=== PATIENT | female | born 1965 | race American Indian/Alaskan Native ===

== ENCOUNTER 2017-02-24 23:51 | Emergency (ER) | payer BC, MEDICARE ==
[2017-02-25 01:06] LABS: Basophils % (Auto) 0.6 % (0.0-1.8); Eosinophils % (Auto) 6.7 % (0.0-4.3); Hematocrit 38.7 % (30.3-42.9); Hemoglobin 12.1 gm/dl (10.1-14.3); Mean Corpuscular HGB Conc 31 % (30-34); Mean Corpuscular Hemoglobin 25 pg (28-32); Mean Corpuscular Volume 80 fl (79-97); Platelet Count 225 K/mm3 (140-440); Red Blood Count 4.83 M/mm3 (3.65-5.03); Red Cell Distribution Width 15.3 % (13.2-15.2); White Blood Count 7.8 K/mm3 (4.5-11.0)
[2017-02-25 01:27] LABS: Anion Gap 18 mmol/L; BUN/Creatinine Ratio 20; Blood Urea Nitrogen 20 mg/dL (7-17); Calcium 9.5 mg/dL (8.4-10.2); Carbon Dioxide 28 mmol/L (22-30); Chloride 99.1 mmol/L (98-107); Glucose 105 mg/dL (65-100); Potassium 3.9 mmol/L (3.6-5.0); Sodium 141 mmol/L (137-145)
--- NOTE | 2017-02-25 16:30 | Emergency Department Report ---
ED Chest Pain HPI - General Chief Complaint: Chest Pain Stated Complaint: CP W L. ARM NUMBNESS Time Seen by Provider: 02/25/17 16:10 Source: patient Mode of arrival: Ambulatory Limitations: No Limitations - History of Present Illness Initial Comments: 51 yo female who comes in due to chest pain. She stated that she was sitting at home on yesterday around 3pm and started having chest pain. She describes the chest pain as midsternal, 4/10, pressure-like, with radiation to her left arm. At that time, she decided to keep doing what she was doing. Around 12:30 am, she decided to come to the ED. Chest pain resolved currently. She admits to having a cardiac stress test several years ago which was normal. Hx of asthma, copd, and htn. -: days(s) (one ) Onset: during rest Pain Location: substernal Pain Radiation: LUE Severity: mild Severity scale (0 -10): 4 Quality: aching, pressure Consistency: now resolved Improves With: nothing Worsens With: nothing Context: other (none ) Other Symptoms: other (none) Treatments Prior to Arrival: other (breathing treatment ) Aspirin use within the Past 7 Days: (0) No - Related Data On Oral Contraceptives: No Home Medications Medication Instructions Recorded Confirmed Last Taken Advair Diskus 500-50 mcg 1 puff IH BID 02/25/17 02/25/17 Unknown Benicar HCT 40-25 mg 1 tab PO DAILY 02/25/17 02/25/17 Unknown Fish Oil 1 tab PO DAILY 02/25/17 02/25/17 Unknown Nexium 40 mg PO DAILY 02/25/17 02/25/17 Unknown Potassium Chloride 20 meq PO DAILY 02/25/17 02/25/17 Unknown Allergies Allergy/AdvReac Type Severity Reaction Status Date / Time aspirin Allergy Shortness Verified 05/26/16 00:44 of Breath shellfish derived Allergy Shortness Verified 05/26/16 00:44 of Breath Heart Score - HEART Score History: Slightly suspicious EKG: Normal Age: 45-65 Risk factors: 1-2 risk factors Troponin: < normal limit HEART Score: 2 ED Review of Systems ROS: Stated complaint: CP W L. ARM NUMBNESS Other details as noted in HPI Constitutional: denies: chills, fever Eyes: denies: eye pain, eye discharge, vision change ENT: denies: ear pain, throat pain Respiratory: denies: cough, shortness of breath, wheezing Cardiovascular: as per HPI, chest pain Endocrine: no symptoms reported Gastrointestinal: denies: abdominal pain, nausea, diarrhea Genitourinary: denies: urgency, dysuria, discharge Musculoskeletal: denies: back pain, joint swelling, arthralgia Skin: denies: rash, lesions Neurological: denies: headache, weakness, paresthesias Psychiatric: denies: anxiety, depression Hematological/Lymphatic: denies: easy bleeding, easy bruising ED Past Medical Hx - Past Medical History Previous Medical History?: Yes Hx Hypertension: Yes Hx Asthma: Yes - Surgical History Additional Surgical History: sinus. cfs leak craniotomy to repair. Hernia - Social History Smoking Status: Never Smoker - Medications Home Medications: Home Medications Medication Instructions Recorded Confirmed Last Taken Type Advair Diskus 500-50 mcg 1 puff IH BID 02/25/17 02/25/17 Unknown History Benicar HCT 40-25 mg 1 tab PO DAILY 02/25/17 02/25/17 Unknown History Fish Oil 1 tab PO DAILY 02/25/17 02/25/17 Unknown History Nexium 40 mg PO DAILY 02/25/17 02/25/17 Unknown History Potassium Chloride 20 meq PO DAILY 02/25/17 02/25/17 Unknown History ED Physical Exam - General Limitations: No Limitations General appearance: alert, in no apparent distress - Head Head exam: Present: atraumatic, normocephalic - Eye Eye exam: Present: normal appearance - ENT ENT exam: Present: mucous membranes moist - Neck Neck exam: Present: normal inspection - Respiratory Respiratory exam: Present: wheezes (diffusely-minimal ) - Cardiovascular Cardiovascular Exam: Present: regular rate, normal rhythm. Absent: systolic murmur, diastolic murmur, rubs, gallop - GI/Abdominal GI/Abdominal exam: Present: soft, normal bowel sounds - Extremities Exam Extremities exam: Present: normal inspection - Back Exam Back exam: Present: normal inspection - Neurological Exam Neurological exam: Present: alert, oriented X3 - Psychiatric Psychiatric exam: Present: normal affect, normal mood - Skin Skin exam: Present: warm, dry, intact, normal color. Absent: rash ED Course Vital Signs 02/25/17 02/25/17 02/25/17 00:12 09:59 15:45 Temperature 98.4 F 98.3 F Pulse Rate 69 62 62 Pulse Rate [ Anterior Bilateral Throughout] Respiratory 18 22 12 Rate Respiratory Rate [Anterior Bilateral Throughout] Blood Pressure 151/83 125/65 101/60 O2 Sat by Pulse 100 97 Oximetry 02/25/17 02/25/17 02/25/17 16:00 17:01 17:12 Temperature Pulse Rate 57 L Pulse Rate [ 63 65 Anterior Bilateral Throughout] Respiratory 14 Rate Respiratory 16 16 Rate [Anterior Bilateral Throughout] Blood Pressure 108/65 O2 Sat by Pulse Oximetry - Reevaluation(s) Reevaluation #1: 02/25/17 16:41 First two sets of enzymes/ekg unremarkable. Home if third set negative. Suspect asthma/uri. Reevaluation #2: 02/25/17 17:17 Cardiac evaluation unremarkable. Suspect asthma/upper respiratory infection. Home after breathing and steroid treatment. CORETTA score - Coretta Score Age > 65: (0) No Aspirin use within the Past 7 Days: (0) No 3 or more CAD Risk Factors: (0) No 2 or more Angina events in past 24 hrs: (0) No Known CAD with more than 50% Stenosis: (0) No Elevated Cardiac Markers: (0) No ST Deviation Greater than 0.5mm: (0) No CORETTA Score: 0 ED Medical Decision Making - Lab Data Result diagrams: 02/25/17 00:26 02/25/17 00:26 - EKG Data EKG shows normal: sinus rhythm Rate: normal - EKG Data When compared to previous EKG there are: no significant change Interpretation: normal EKG Critical care attestation.: If time is entered above; I have spent that time in minutes in the direct care of this critically ill patient, excluding procedure time. ED Disposition Clinical Impression: Asthma, Upper respiratory infection, viral Disposition: DC-01 TO HOME OR SELFCARE Is pt being admited?: No Does the pt Need Aspirin: No Condition: Stable Instructions: Asthma (ED), Upper Respiratory Infection (ED) Additional Instructions: Please establish with a provider on discharge. Return to the ED for worsening chest pain, shortness of breath, fever, or chills. Referrals: PRIMARY CARE, [Primary Care Provider] - 3-5 Days Time of Disposition: 17:56
[2017-02-25] MEDS ORDERED: DUONEB *Not for PRN Use IH ONE (16:42)
[2017-02-25 18:24] VITALS: BP 112/76
--- NOTE | 2017-02-25 20:31 | XRay Report ---
FINAL REPORT EXAM: XR CHEST 1V AP HISTORY: chest pain TECHNIQUE: AP portable view of the chest PRIORS: None. FINDINGS: Lines, tubes, and devices: N/A Lungs and pleura: Trachea is normal in position. Lungs are clear of infiltrate, pleural effusion, vascular congestion, or pneumothorax. Cardiomediastinal silhouette: Cardiac and mediastinal silhouettes are unremarkable. Other: Bony structures are intact. IMPRESSION: No acute cardiopulmonary process seen.
== END 2017-02-25 18:23 | disposition home or self-care (01) ==
LOC: ED 23:51
DX: J45.909 Unspecified asthma, uncomplicated (principal); J06.9 Acute upper respiratory infection, unspecified; I10 Essential (primary) hypertension; Z88.6 Allergy status to analgesic agent; Z91.013 Allergy to seafood
CPT/HCPCS: 36415; 71010; 80048; 84484; 85025; 93005; 93010; 94640; 96372; 99284; J2930

== ENCOUNTER 2017-04-09 05:56 | Emergency (ER) | payer BC, MEDICARE ==
[2017-04-09] MEDS ORDERED: PROVENTIL IH ONE (06:06)
[2017-04-09] MEDS ORDERED: ATROVENT IH ONE (06:06)
[2017-04-09] MEDS ORDERED: DELTASONE PO ONE (06:07)
[2017-04-09 07:27] LABS: Hematocrit 39.3 % (30.3-42.9); Hemoglobin 12.7 gm/dl (10.1-14.3); Mean Corpuscular HGB Conc 32 % (30-34); Mean Corpuscular Volume 80 fl (79-97); Platelet Count 207 K/mm3 (140-440); Red Blood Count 4.91 M/mm3 (3.65-5.03); Red Cell Distribution Width 15.5 % (13.2-15.2)
[2017-04-09 07:33] LABS: Mean Corpuscular Hemoglobin 26 pg (28-32)
[2017-04-09 07:41] LABS: BUN/Creatinine Ratio 17; Blood Urea Nitrogen 15 mg/dL (7-17); Calcium 9.2 mg/dL (8.4-10.2); Hemolysis Index 2
[2017-04-09 08:42] LABS: Band Neutrophils # (Manual) 0.1 K/mm3; Basophils % (Manual) 0 % (0.0-1.8); Platelet Estimate Consistent w Auto; RBC Morphology Normal; Total Cells Counted 100
--- NOTE | 2017-04-09 11:47 | XRay Report ---
CHEST 2 VIEWS INDICATION: Difficulty breathing. COMPARISON: 02/25/2017. FINDINGS: PA and lateral chest radiographs demonstrate normal cardiomediastinal silhouette. Clear lungs. Slight mid thoracic superior endplate compressions at a couple of levels and mild degenerative spurring, similar to May 2016. CONCLUSION: No acute disease in the chest. Thank you for the opportunity to participate in this patient's care.
[2017-04-09] MEDS ORDERED: MAGNESIUM SULFATE 2GM/50ML 2 GM/50 ML BAG IV ONE (12:18)
[2017-04-09] MEDS ORDERED: DUONEB *Not for PRN Use IH ONE (12:18)
[2017-04-09] MEDS ORDERED: DECADRON IV ONE (12:18)
--- NOTE | 2017-04-09 13:21 | Emergency Department Report ---
ED Asthma HPI - General Chief Complaint: Dyspnea/Respdistress Stated Complaint: TALIB Time Seen by Provider: 04/09/17 12:12 Source: patient Mode of arrival: Ambulatory Limitations: No Limitations - History of Present Illness Initial Comments: 51-year-old female past medical history asthma presents with complaint of accident exacerbation which started last night. Patient states that she began wheezing and used her nebulizer at home but ran out of medicine. He states it got somewhat better but in the morning wheezing persisted which is why she came here. Patient denies chest pain bodyaches fevers chills nausea vomiting dysuria hematuria or abdominal pain palpitations or pleuritic chest pain. Patient is fully lucid speaking in full sentences no audible wheezing or stridor. No visible dyspnea. States wheezing has somewhat improved but still feels slightly short of breath. Denies any history of intubations. Patient denies being a smoker. Denies body aches fevers chills nausea or any flulike/ viral syndrome/symptoms. Denies sick contacts. MD Complaint: "asthma attack", wheezing -: Last night Asthma History: childhood onset Severity: mild Context: none known Associated Symptoms: none Treatments Prior to Arrival: inhaled bronchodilator - Related Data Current Asthma Therapy: inhaled bronchodilator Home Medications Medication Instructions Recorded Confirmed Last Taken Advair Diskus 500-50 mcg 1 puff IH BID 02/25/17 02/25/17 Unknown Benicar HCT 40-25 mg 1 tab PO DAILY 02/25/17 02/25/17 Unknown Fish Oil 1 tab PO DAILY 02/25/17 02/25/17 Unknown Nexium 40 mg PO DAILY 02/25/17 02/25/17 Unknown Potassium Chloride 20 meq PO DAILY 02/25/17 02/25/17 Unknown Previous Rx's Medication Instructions Recorded Last Taken Type Albuterol Sulfate [Albuterol 0.63% 0.63 mg IH Q4H PRN #1 box 04/09/17 Unknown Rx NEBS] Albuterol Sulfate [Ventolin Hfa] 1 puff IH Q4H PRN #1 hfa.aer.ad 04/09/17 Unknown Rx Prednisone [predniSONE 10 mg 10 mg PO .TAPER #1 tab.ds.pk 04/09/17 Unknown Rx (6-Day Pack, 21 Tabs)] Allergies Allergy/AdvReac Type Severity Reaction Status Date / Time aspirin Allergy Shortness Verified 05/26/16 00:44 of Breath shellfish derived Allergy Shortness Verified 05/26/16 00:44 of Breath ED Review of Systems ROS: Stated complaint: TALIB Other details as noted in HPI Constitutional: denies: chills, fever Eyes: denies: eye pain, eye discharge, vision change ENT: denies: ear pain, throat pain Respiratory: shortness of breath, wheezing. denies: cough Cardiovascular: denies: chest pain, palpitations Endocrine: no symptoms reported Gastrointestinal: denies: abdominal pain, nausea, diarrhea Genitourinary: denies: urgency, dysuria, discharge Musculoskeletal: denies: back pain, joint swelling, arthralgia Skin: denies: rash, lesions Neurological: denies: headache, weakness, paresthesias Psychiatric: denies: anxiety, depression Hematological/Lymphatic: denies: easy bleeding, easy bruising ED Past Medical Hx - Past Medical History Hx Hypertension: Yes Hx Asthma: Yes - Surgical History Additional Surgical History: sinus. cfs leak craniotomy to repair. Hernia - Social History Smoking Status: Never Smoker Substance Use Type: None, Alcohol - Medications Home Medications: Home Medications Medication Instructions Recorded Confirmed Last Taken Type Advair Diskus 500-50 mcg 1 puff IH BID 02/25/17 02/25/17 Unknown History Benicar HCT 40-25 mg 1 tab PO DAILY 02/25/17 02/25/17 Unknown History Fish Oil 1 tab PO DAILY 02/25/17 02/25/17 Unknown History Nexium 40 mg PO DAILY 02/25/17 02/25/17 Unknown History Potassium Chloride 20 meq PO DAILY 02/25/17 02/25/17 Unknown History Albuterol Sulfate [Albuterol 0.63% 0.63 mg IH Q4H PRN #1 box 04/09/17 Unknown Rx NEBS] Albuterol Sulfate [Ventolin Hfa] 1 puff IH Q4H PRN #1 hfa.aer.ad 04/09/17 Unknown Rx Prednisone [predniSONE 10 mg 10 mg PO .TAPER #1 tab.ds.pk 04/09/17 Unknown Rx (6-Day Pack, 21 Tabs)] ED Physical Exam - General Limitations: No Limitations General appearance: alert, in no apparent distress - Head Head exam: Present: atraumatic, normocephalic - Eye Eye exam: Present: normal appearance, PERRL, EOMI - ENT ENT exam: Present: mucous membranes moist - Neck Neck exam: Present: normal inspection - Respiratory Respiratory exam: Present: wheezes (wheezing bilateral lower lung angel). Absent: respiratory distress - Cardiovascular Cardiovascular Exam: Present: regular rate, normal rhythm. Absent: systolic murmur, diastolic murmur, rubs, gallop - GI/Abdominal GI/Abdominal exam: Present: soft, normal bowel sounds - Extremities Exam Extremities exam: Present: normal inspection - Back Exam Back exam: Present: normal inspection - Neurological Exam Neurological exam: Present: alert, oriented X3 - Psychiatric Psychiatric exam: Present: normal affect, normal mood - Skin Skin exam: Present: warm, dry, intact, normal color. Absent: rash ED Course Vital Signs 04/09/17 04/09/17 06:00 06:21 Temperature 98.9 F Pulse Rate 81 Pulse Rate [ 76 Anterior Bilateral Throughout] Respiratory 20 Rate Respiratory 20 Rate [Anterior Bilateral Throughout] Blood Pressure 124/71 O2 Sat by Pulse 96 Oximetry ED Medical Decision Making - Lab Data Result diagrams: 04/09/17 06:49 04/09/17 06:49 - Medical Decision Making A/P: Asthma exacerbation, reactive airway disease 1-refill on albuterol inhaler 2- prednisone/taper 3- normal vital signs, patient does not have any audible wheezing or stridor or retractions before discharge. 4- vital signs stable for discharge 5- patient to follow up with primary care doctor Critical care attestation.: If time is entered above; I have spent that time in minutes in the direct care of this critically ill patient, excluding procedure time. ED Disposition Clinical Impression: Asthma exacerbation Qualifiers: Asthma severity: mild Asthma persistence: unspecified Qualified Code(s): J45.901 - Unspecified asthma with (acute) exacerbation Disposition: DC-01 TO HOME OR SELFCARE Is pt being admited?: No Does the pt Need Aspirin: No Condition: Stable Instructions: Asthma (ED) Prescriptions: Albuterol Sulfate [Albuterol 0.63% NEBS] 0.63 mg IH Q4H PRN #1 box PRN Reason: Wheezing Albuterol Sulfate [Ventolin Hfa] 1 puff IH Q4H PRN #1 hfa.aer.ad PRN Reason: Wheezing Prednisone [predniSONE 10 mg (6-Day Pack, 21 Tabs)] 10 mg PO .TAPER #1 tab.ds.pk Referrals: [facility] [Outside] - 3-5 Days [facility] [Outside] - 3-5 Days Forms: Work/School Release Form(ED) Time of Disposition: 13:23
[2017-04-09 13:30] VITALS: BP 130/75
== END 2017-04-09 13:29 | disposition home or self-care (01) ==
LOC: ED 05:56
DX: J45.901 Unspecified asthma with (acute) exacerbation (principal); I10 Essential (primary) hypertension; Z91.013 Allergy to seafood; Z88.8 Allergy status to other drugs, medicaments and biological substances
CPT/HCPCS: 36415; 71046; 80048; 85007; 85025; 94640; 96365; 96375; 99284; J1100; J3475; J7512

== ENCOUNTER 2017-05-04 20:03 | Emergency (ER) | payer BC, MEDICARE ==
[2017-05-04 20:44] VITALS: BP 119/77
[2017-05-04] MEDS ORDERED: ASPIRIN PO ONE (20:45)
[2017-05-04 21:24] LABS: Basophils # (Auto) 0.1 K/mm3 (0.0-0.1); Eosinophils # (Auto) 0.7 K/mm3 (0.0-0.4); Eosinophils % (Auto) 8.9 % (0.0-4.3); Hematocrit 38.7 % (30.3-42.9); Lymphocytes # (Auto) 3.5 K/mm3 (1.2-5.4); Lymphocytes % (Auto) 43.4 % (13.4-35.0); Mean Corpuscular HGB Conc 31 % (30-34); Mean Corpuscular Volume 81 fl (79-97); Monocytes # (Auto) 0.6 K/mm3 (0.0-0.8); Monocytes % (Auto) 7.7 % (0.0-7.3); Platelet Count 229 K/mm3 (140-440); Red Blood Count 4.76 M/mm3 (3.65-5.03); Red Cell Distribution Width 16.1 % (13.2-15.2)
[2017-05-04 21:29] LABS: Mean Corpuscular Hemoglobin 25 pg (28-32)
[2017-05-04 21:42] LABS: BUN/Creatinine Ratio 16; Blood Urea Nitrogen 16 mg/dL (7-17); Calcium 9.3 mg/dL (8.4-10.2); Hemolysis Index 10
== END 2017-05-05 00:21 | disposition left against medical advice (07) ==
LOC: ED 20:03
DX: R07.9 Chest pain, unspecified (principal); Z53.21 Procedure and treatment not carried out due to patient leaving prior to being seen by health care provider
CPT/HCPCS: 36415; 80048; 84484; 84703; 85025; 93005; 93010

== ENCOUNTER 2017-05-18 22:52 | Emergency (ER) | payer BC, MEDICARE ==
[2017-05-19] MEDS ORDERED: PROVENTIL IH ONE ×2 (00:32→00:35)
[2017-05-19 00:34] VITALS: BP 118/76
== END 2017-05-19 04:46 | disposition left against medical advice (07) ==
LOC: ED 22:52
DX: R06.00 Dyspnea, unspecified (principal); Z53.21 Procedure and treatment not carried out due to patient leaving prior to being seen by health care provider

== ENCOUNTER 2017-12-21 21:33 | Emergency (ER) | payer BC, MEDICARE ==
[2017-12-21] MEDS ORDERED: ASPIRIN PO ONE (22:23)
[2017-12-21 22:24] VITALS: BP 120/73
== END 2017-12-21 22:48 | disposition left against medical advice (07) ==
LOC: ED 21:33
DX: R07.89 Other chest pain (principal); Z53.21 Procedure and treatment not carried out due to patient leaving prior to being seen by health care provider
CPT/HCPCS: 93005; 93010

== ENCOUNTER 2018-06-20 08:03 | Outpatient (CLI) | payer BC, OTHER | END 2018-06-20 08:04 | disposition home or self-care (01) | LOC: LABHHL 08:03 | PROVIDERS: ATTEND Surgery | DX: N63.24 Unspecified lump in the left breast, lower inner quadrant (principal); I10 Essential (primary) hypertension; J45.909 Unspecified asthma, uncomplicated | CPT/HCPCS: 88305 ==

== ENCOUNTER 2018-07-18 11:06 | Day surgery (SDC) | payer BC, OTHER ==
[~2018-07-18 11:06] MED LIST: ANCEF/STERILE WATER 2 GM/20 ML 2 GM/20 ML SYRINGE IV NR
[2018-07-18] MEDS ORDERED: ZOFRAN IV PRN (12:09)
[2018-07-18] MEDS ORDERED: DILAUDID IV PRN (12:09)
[2018-07-18] MEDS ORDERED: SUBLIMAZE IV PRN (12:09)
[2018-07-18] MEDS ORDERED: NARCAN 0.4 MG/1 ML IV PRN (12:09)
--- NOTE | 2018-07-18 12:09 | Anesthesia Consultation ---
Anesthesia Consult and Med Hx Date of service: 07/18/18 - Airway Anesthetic Teeth Evaluation: Poor ROM Head & Neck: Adequate Mental/Hyoid Distance: Adequate Mallampati Class: Class II Intubation Access Assessment: Good - Pulmonary Exam CTA: Yes - Cardiac Exam Cardiac Exam: RRR - Pre-Operative Health Status ASA Pre-Surgery Classification: ASA2 Proposed Anesthetic Plan: MAC - Pulmonary Hx Asthma: Yes (INHALER AND ORAL MED) - Cardiovascular System Hx Hypertension: Yes - Central Nervous System Hx Psychiatric Problems: No - Other Systems Hx Alcohol Use: No Hx Substance Use: No Hx Cancer: No
--- NOTE | 2018-07-18 12:09 | Anesthesia Day of Surgery ---
Anesthesia Day of Surgery - Day of Surgery Patient Examined: Yes Patient H&P Reviewed: Yes Patient is NPO: Yes Beta Blockers: No Cardiac Clearance: No Pulmonary Clearance: No
--- NOTE | 2018-07-18 12:20 | Operative Report ---
Operative Report Operative Report: Operative Report: Date of Service: July 18, 2018 Preoperative diagnosis: Left breast sebaceous cyst of the lower inner quadrant Postoperative diagnosis: Same Procedure: Left breast sebaceous cyst excisional biopsy of the lower inner quadrant Anesthesia: Local MAC Surgeon: Tiarra Hdz M.D. Findings: Left breast sebaceous cyst at the 8 o'clock position with excision performed Complications: None Drains: None Estimated blood loss: Minimal Disposition: PACU in good condition Indication for operative procedure: This is a 52-year-old lady with left breast sebaceous cyst. Recent biopsy findings of sebaceous cyst and recommendations for excision given increasing size and risk for infection. Patient wished to proceed with the above procedure. The patient was procedure in detail: The patient was taken to the operating room and was laid supine. Local MAC anesthesia was administered. The left breast sebacous cyst was palpable at the 8 o'clock position close to the sternum. The left breast was prepped and draped in the normal sterile operative fashion. Timeout was performed. The area of incision was anesthesized with 1% lidocaine mixed with quarter percent marcaine. A breast incision was made with a 15 blade knife at the 8:00 position. Upon incision the most medial aspect of the cyst ruptured. The cyst was then dissected free from the underlying skin and the posterior aspect removed from the posterior breast tissues with the aid of the Bovie cautery. The cyst capsule was removed in its entirety. The specimen was sent to pathology. Hemostasis was then obtained using the Bovie cautery. Breast cavity was anesthesized with additional 1% lidocaine and quarter percent marcaine. The breast cavity was irrigated and suctioned. The deep breast tissues were approximated and closed using interrupted 3-0 Vicryl and skin brought together and closed using a running 4-0 Monocryl followed by dermabond. She tolerated surgery very well and was awakened from anesthesia without any complication and transported to PACU in good condition.
[2018-07-18] MEDS ORDERED: MARCAINE 0.25% INFILTRATI ONE ×2 (12:33→12:41)
[2018-07-18] MEDS ORDERED: NACL 0.9% IR ONE (12:33)
[2018-07-18] MEDS ORDERED: NEOSPORIN GU IR ONE ×2 (12:33→13:14)
[2018-07-18] MEDS ORDERED: XYLOCAINE 1% 20 mL INFILTRATI ONE (12:33)
[2018-07-18] MEDS ORDERED: XYLOCAINE 1% 20 mL ONE (12:41)
[2018-07-18] MEDS ORDERED: DILAUDID ONE (12:45)
[2018-07-18] MEDS ORDERED: DIPRIVAN 10 MG/ML IV ONE ×2 (12:45→13:28)
[2018-07-18] MEDS ORDERED: VERSED ONE (12:45)
[2018-07-18] MEDS ORDERED: LACTATED RINGERS 1,000 ML IV SCH (13:00)
[2018-07-18] MEDS ORDERED: NACL 0.9% 1000 ML 1,000 ML ONE (14:08)
[2018-07-18] MEDS ORDERED: XYLOCAINE MPF 2% ONE (14:08)
--- NOTE | 2018-07-18 14:30 | Short Stay Summary ---
Short Stay Documentation Date of service: 07/18/18 - History H&P: obtained from office - Allergies and Medications Current Medications: Allergies aspirin Allergy (Verified 07/15/18 10:37) Shortness of Breath shellfish derived Allergy (Verified 07/15/18 10:37) Anaphylaxis Home Medications Medication Instructions Recorded Confirmed Last Taken Type ALBUTEROL Inhaler (OR & NICU) 2 puff IH QID PRN 07/15/18 07/15/18 Unknown Hist ory [Proair] Esomeprazole Magnesium [NexIUM] 40 mg PO QDAY 07/15/18 07/15/18 Unknown History Fluticasone [Flonase] 1 spray NS QDAY 07/15/18 07/15/18 Unknown History Fluticasone/Salmeterol [Advair 1 each IH BID 07/15/18 07/15/18 Unknown History 500-50 Diskus] Ipratropium/Albuterol Sulfate 1 ampul IH Q6HR PRN 07/15/18 07/15/18 Unknown History [DUONEB *Not for PRN Use*] Montelukast [Singulair] 10 mg PO QPM 07/15/18 07/15/18 Unknown History HYDROcodone/APAP 5-325 [[place] 1 each PO Q6HR PRN #25 tablet 07/18/18 Unknown Rx 5/325] Sulfamethoxazole/Trimethoprim 1 each PO BID #14 tablet 07/18/18 Unknown Rx [Bactrim DS TAB] Active Medications Fentanyl (Sublimaze) 50 mcg IV Q5MIN PRN PRN Reason: Pain , Severe (7-10) Hydromorphone HCl (Dilaudid) 0.5 mg IV Q10MIN PRN PRN Reason: Pain , Severe (7-10) Cefazolin Sodium (Ancef/Sterile Water 2 Gm/20 Ml) 2 gm in 20 mls @ 80 mls/hr IV PREOP NR; Protocol Stop: 07/18/18 23:59 Lactated Ringer's (Lactated Ringers) 1,000 mls @ 42 mls/hr IV DIRECT FLAQUITA Naloxone HCl (Narcan 0.4 Mg/1 Ml) 0.1 mg IV Q2MIN PRN PRN Reason: Res Rate </= 8 or 02 SAT < 92% Ondansetron HCl (Zofran) 4 mg IV ONCE PRN PRN Reason: Nausea And Vomiting - Brief post op/procedure progress note Date of procedure: 07/18/18 Pre-op diagnosis: Left breast sebaceous cyst Post-op diagnosis: same Procedure: Left breast sebaceous cyst excisional biopsy Anesthesia: GETA Findings: Left ruptured sebaceous cyst excisional biopsy Surgeon: OMAR GUPTA Estimated blood loss: minimal Pathology: list (left sebaceous cyst) Specimen disposition: to lab Condition: stable - Disposition Condition at discharge: Good Disposition: DC-01 TO HOME OR SELFCARE Short Stay Discharge Plan Activity: other (no heavy lifting) Diet: regular Wound: keep clean and dry (wear breast binder) Follow up with: ZARINA ALMAGUER MD [Primary Care Provider] - 7 Days OMAR GUPTA MD [Staff Physician] - 7 Days Prescriptions: Sulfamethoxazole/Trimethoprim [Bactrim DS TAB] 1 each PO BID #14 tablet HYDROcodone/APAP 5-325 [[place] 5/325] 1 each PO Q6HR PRN #25 tablet PRN Reason: Pain
--- NOTE | 2018-07-18 14:52 | Post Anesthesia Evaluation ---
- Post Anesthesia Evaluation Patient Participated: Yes Airway Patent: Yes Stable Respiratory Function: Yes Nausea/Vomiting: No Temp > 96.8F: Yes Pain Manageable: Yes Adequeate Hydration: Yes Anesthesia Complications: No
[2018-07-18 16:31] VITALS: BP 120/74
== END 2018-07-18 16:20 | disposition home or self-care (01) ==
LOC: OR 11:06
PROVIDERS: ATTEND Surgery
DX: L72.8 Other follicular cysts of the skin and subcutaneous tissue (principal); N60.82 Other benign mammary dysplasias of left breast; I10 Essential (primary) hypertension; J45.909 Unspecified asthma, uncomplicated; K21.9 Gastro-esophageal reflux disease without esophagitis; Z98.890 Other specified postprocedural states; Z88.6 Allergy status to analgesic agent; Z91.013 Allergy to seafood; Z88.8 Allergy status to other drugs, medicaments and biological substances
CPT/HCPCS: 11406; 88304; J0690; J1170; J2250; J2704; J7030; J7120

== ENCOUNTER 2019-05-05 19:08 | Emergency (ER) | payer BC ==
[2019-05-05 19:43] VITALS: BP 147/87
== END 2019-05-05 20:30 | disposition left against medical advice (07) ==
LOC: ED 19:08
DX: R06.02 Shortness of breath (principal); Z53.21 Procedure and treatment not carried out due to patient leaving prior to being seen by health care provider

== ENCOUNTER 2021-11-07 17:03 | Emergency (ER) | payer SELFPAY ==
[2021-11-07 17:44] VITALS: BP 144/84
--- NOTE | 2021-11-07 18:25 | XRay Report ---
CHEST 2 VIEWS INDICATION / CLINICAL INFORMATION: sob. Dyspnea FINDINGS: SUPPORT DEVICES: None. HEART / MEDIASTINUM: No significant abnormality. LUNGS / PLEURA: No significant pulmonary or pleural abnormality. No pneumothorax. ADDITIONAL FINDINGS: No significant additional findings. IMPRESSION: 1. No acute findings. Signer Name: Wade Goel MD Signed: 11/07/2021 6:20 PM Workstation Name: [employer]
[2021-11-07 18:43] LABS: Hematocrit 38.1 % (30.3-42.9); Hemoglobin 12.1 gm/dl (10.1-14.3); Mean Corpuscular HGB Conc 32 % (30-34); Mean Corpuscular Volume 82 fl (79-97); Platelet Count 193 K/mm3 (140-440); Red Blood Count 4.62 M/mm3 (3.65-5.03)
[2021-11-07 19:20] LABS: Alanine Aminotransferase 25 units/L (7-56); Albumin 4.3 g/dL (3.9-5); BUN/Creatinine Ratio 13; Blood Urea Nitrogen 10 mg/dL (7-17); Calcium 9.3 mg/dL (8.4-10.2); Hemolysis Index 5
--- NOTE | 2021-11-11 13:40 | Electrocardiograph Report ---
[facility] Test Date: 2021-11-07 Test Time: 17:46:13 Pat Name: ROXANA RYAN Department: Room: Gender: F Manager Pricing: 0000 : 1965 Requested By: HIRAM BERTRAND Order Number: [id number] Reading MD: King Chacon Measurements Intervals [place] Rate: 59 P: 60 [place]: 177 QRS: -32 QRSD: 94 T: -15 QT: 400 QTc: 398 Interpretive Statements Sinus rhythm Probable left atrial enlargement Left ventricular hypertrophy Anterior Q waves, possibly due to LVH Nonspecific T abnormalities, inferior leads No previous ECG available for comparison Electronically Signed On 11-11-2021 13:40:32 EDT by King Chacon
== END 2021-11-08 02:00 | disposition left against medical advice (07) ==
LOC: ED 17:03
DX: R06.02 Shortness of breath (principal); Z53.21 Procedure and treatment not carried out due to patient leaving prior to being seen by health care provider
CPT/HCPCS: 36415; 71046; 80053; 84484; 85027; 93005

== ENCOUNTER 2021-11-08 04:03 | Emergency (ER) | payer SELFPAY | END 2021-11-08 09:53 | disposition left against medical advice (07) | LOC: ED 04:03 | DX: R06.02 Shortness of breath (principal); Z53.21 Procedure and treatment not carried out due to patient leaving prior to being seen by health care provider ==